=== PATIENT | female | born 1965 | race African-American/Black ===

== ENCOUNTER 2017-04-14 20:40 | Emergency (ER) | payer BC, OTHER ==
[2017-04-14] MEDS ORDERED: AMOX500C PO (21:33)
--- NOTE | 2017-04-14 21:33 | PHYS DOC ---
Adult General Chief Complaint Chief Complaint: DENTAL PROBLEM [facility] HPI Patient is a 51 year old female presents to the emergency department stating that she has fractured a tooth approximately a year ago when the right upper area of her mouth. Patient states that she's been having some pain and discomfort the last few days. She states when she lay down this afternoon and woke up she was having some pain in her lower jaw down into her right anterior cervical lymph node. Patient states that anytime she tries to turn her head to the left or to the right she has lightheadedness and dizziness. She is able to put her chin to her chest with no difficulty with no dizziness. She denies fever , chills or nausea vomiting. She has not taken anything for the pain and discomfort. Review of Systems Review of Systems Constitutional: Denies fever or chills [] Eyes: Denies change in visual acuity, redness, or eye pain [] HENT: Denies nasal congestion or sore throat. Complaint of dental pain and right anterior neck pain Respiratory: Denies cough or shortness of breath [] Cardiovascular: No additional information not addressed in HPI [] GI: Denies abdominal pain, nausea, vomiting, bloody stools or diarrhea [] : Denies dysuria or hematuria [] Musculoskeletal: Denies back pain or joint pain [] Integument: Denies rash or skin lesions [] Neurologic: Denies headache, focal weakness or sensory changes. Complaint of dizziness when turning her head from left to right Endocrine: Denies polyuria or polydipsia [] Physical Exam Physical Exam Constitutional: Well developed, well nourished, no acute distress, non-toxic appearance. [] HENT: Normocephalic, atraumatic, bilateral external ears normal, oropharynx moist, no oral exudates, nose normal. Bilateral tympanic membranes appear to be normal. Patient with abscess noted in the right upper dental area. Patient with swelling noted in the lower jaw line on the right. Right anterior cervical adenopathy noted. Throat with no erythematous no drainage no exudate noted. Eyes: PERRLA, EOMI, conjunctiva normal, no discharge. [] Neck: Normal range of motion, no tenderness, supple, no stridor. [] Cardiovascular:Heart rate regular rhythm, no murmur [] Lungs & Thorax: Bilateral breath sounds clear to auscultation [] Skin: Warm, dry, no erythema, no rash. [] Back: No tenderness Extremities: No tenderness, no cyanosis, no clubbing, ROM intact, no edema. [] Neurologic: Alert and oriented X 3, normal motor function, normal sensory function, no focal deficits noted. Patient was able to put her chin to her chest. She was able to tilt her head back with no dizziness noted. Patient turned red from the left to the right with no nystagmus noted. 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 She was up ambulating she was able to turn her head from the left to the right with no unsteadiness noted indicate. Psychologic: Affect normal, judgement normal, mood normal. [] EKG EKG [] Radiology/Procedures Radiology/Procedures [] Course & Med Decision Making Course & Med Decision Making Pertinent Labs and Imaging studies reviewed. (See chart for details) Offered the patient a CT scan of the head to develop lightheadedness dizziness with turning her head for the left and the right. Patient refuses. Patient will be placed on amoxicillin with recommendations for Tylenol or ibuprofen for pain and discomfort. Recommended following up with the dentist within the next week. Patient was provided with signs and symptoms to return to the emergency department. Patient will be discharged home in stable condition. Patient agrees with discharge instructions, treatment regimens and follow-up recommendations. All questions and concerns was answered at the patient's bedside. [] Dragon Disclaimer Dragon Disclaimer This electronic medical record was generated, in whole or in part, using a voice recognition dictation system. Departure Departure Impression: Primary Impression: Dental abscess Additional Impression: Anterior cervical adenopathy Disposition: 01 HOME, SELF-CARE Condition: STABLE Referrals: DEWAYNE ALFONSO (PCP) Patient Instructions: Dental Abscess Additional Instructions: You have been offered a CT scan of your head to rule out any abnormalities regarding your dizziness. You have refused this treatment here in the emergency department. However he may choose to return back if the dizziness becomes worse. Activity as tolerated. Tylenol or ibuprofen for pain and discomfort. Warm salt water mouth rinses 4 times a day. Antibiotics as prescribed. No driving while you're having dizziness with turning her head to the left to the right. Follow-up to primary care physician in the next week in regards to your dizziness. Follow-up with a dentist in the next week in regards to your dental issues. Return back to emergency prior signs symptoms of become worse. Scripts Amoxicillin (AMOXICILLIN) 500 Mg Capsule 1 CAP PO QID, #40 CAP Prov: EVELYN RAMIREZ APRN 04/14/17 Problem Qualifiers EVELYN RAMIREZ APRN Apr 14, 2017 21:33
== END 2017-04-14 21:42 | disposition home or self-care (01) ==
LOC: ER 20:40
DX: K04.7 Periapical abscess without sinus (principal); R59.0 Localized enlarged lymph nodes; R42 Dizziness and giddiness
CPT/HCPCS: 99283